=== PATIENT | female | born 1965 | race Caucasian/White ===

== ENCOUNTER 2024-08-12 13:23 | Outpatient (OUT) | payer OTHER, SELFPAY ==
--- NOTE | 2024-08-12 13:24 | MM_ITS ---
Patient Name: GARRISON HOOK MR#: [id number] : 1965 Exam Date: 08/12/2024 Ordering Doctor: DR Rani Sawyer M.D. RADIOLOGY REPORT PROCEDURE: MM TOMOSYNTHESIS SCREENING BI COMPARISON: MG MAMM SCREEN 3D CHELY CAD, 08/15/2021. MG MAMM SCREEN CHELY W CAD, 08/17/2019. MG MAMM SCREEN CHELY W CAD, 09/25/2017. MG MAMM CHELY SCRN W CAD DIG, 09/01/2014. INDICATIONS: Screening Calculator Name NCI Breast Cancer Risk Assessment Tool 5 Year Breast Cancer Risk 1.90% Lifetime Breast Cancer Risk 10.20% Personal Breast Cancer No Personal Ovarian Cancer No Treatments None Family Cancers Grandmother-paternal with bone cancer cancer at age ~60. LOCATION: [facility] BREAST COMPOSITION: The breasts are heterogeneously dense,which may obscure small masses. FINDINGS: DIAGNOSTIC CATEGORY 1--NEGATIVE. RIGHT BREAST: No significant suspicious finding. No significant change has occurred. LEFT BREAST: No significant suspicious finding. No significant change has occurred. RECOMMENDATIONS: ROUTINE MAMMOGRAM AND CLINICAL EVALUATION IN 12 MONTHS. PLEASE NOTE: A NORMAL MAMMOGRAM DOES NOT EXCLUDE THE POSSIBILITY OF BREAST CANCER. A CLINICALLY SUSPICIOUS PALPABLE LUMP SHOULD BE BIOPSIED. Dictated by: Juan Hook M.D. on 08/12/2024 at 14:54 Approved by: Juan Hook M.D. on 08/12/2024 at 15:05
== END 2024-08-12 13:24 | disposition home or self-care (01) ==
LOC: MAMMO 13:23
PROVIDERS: PCP Family Medicine; Visit Provider Family Medicine
DX: Z12.31 Encounter for screening mammogram for malignant neoplasm of breast (principal); Z80.8 Family history of malignant neoplasm of other organs or systems
CPT/HCPCS: 77063; 77067